=== PATIENT | female | born 1930 | race Caucasian/White ===

== ENCOUNTER 2018-01-27 16:47 | Inpatient (IN) | payer MEDICARE, MEDICAID ==
[2018-01-27 20:44] LABS: ABS Basophils 0 10^3/ul (0-0.2); ABS Eosinophils 0 10^3/ul (0-0.6); ABS Lymphocytes 0.6 10^3/ul (1.0-4.8); ABS Monocytes 0.9 10^3/ul (0-0.8); ABS Nucleated RBC 0 10^3/ul; Eosinophil % 0.4 % (0-6); Hematocrit 27 % (35-47); Hemoglobin 9.4 g/dl (12.0-16.0); Lymphocyte % 5.9 % (25-47); Mean Corpuscular HGB Conc 34 g/dl (31-36); Mean Corpuscular Hemoglobin 30 pg (27-31); Mean Corpuscular Volume 89 fL (80-97); Nucleated Red Blood Cells % 0; Platelet Count 159 10^3/ul (150-450); Red Cell Distribution Width 13 % (10.5-15); White Blood Count 10.6 10^3/ul (3.5-10.8)
[2018-01-27 21:02] LABS: EGFR Non-African American 35.4 (>60)
--- NOTE | 2018-01-27 22:19 | ED ---
Neurological HPI - HPI Summary HPI Summary: This patient is an 87 year old F presenting to [facility] accompanied by her son with a chief complaint of expressive aphasia since 01/23/18. Pt denies visual changes and SPENCE. She denies PMHx CVA, ID. PMHx polio; right leg smaller and weaker than the left. She also endorses lower abd pain, and was in the hospital for a liver I&D. She denies any urinary sx and N/V/D. - History of Current Complaint Chief Complaint: EDAbdPain Stated Complaint: GEN ILLNESS Hx Obtained From: Patient Onset/Duration: Sudden Onset, Started days ago, Still Present Timing: Constant Onset Severity: Mild Current Severity: Mild Neurological Deficit Location: Generalized Pain Intensity: 4 Pain Scale Used: 0-10 Numeric Character: Impaired Speech - expressive aphasia Aggravating: Nothing Alleviating: Nothing Associated Signs and Symptoms: Positive: Impaired Speech, Nothing. Negative: Visual Changes, Headache, Nausea/Vomiting TPA Considered: No Related Hx: Recent Illness - recent hospital visit, I&D for abscess on liver - Allergy/Home Medications Allergies/Adverse Reactions: Allergies Allergy/AdvReac Type Severity Reaction Status Date / Time MS Epinephrine [Epinephrine] AdvReac Severe Palpitation Verified 01/24/18 11:22 s MS Procaine [From Novocain] AdvReac Severe Palpitation Verified 01/24/18 11:22 s MS Phenytoin [From Dilantin] AdvReac Intermediate Shakes Verified 01/24/18 11:22 MS Simvastatin [Simvastatin] AdvReac Unknown See Comment Verified 01/24/18 11:22 PMH/Surg Hx/FS Hx/Imm Hx Endocrine/Hematology History: Denies: Hx Diabetes Cardiovascular History: Reports: Hx Angina, Hx Coronary Artery Disease, Hx Hypercholesterolemia, Hx Hypertension Denies: Hx Myocardial Infarction, Hx Valvular Heart Disease Respiratory History: Denies: Hx Asthma, Hx Chronic Obstructive Pulmonary Disease (COPD) Sensory History: Denies: Hx Legally Blind, Hx Deafness Opthamlomology History: Denies: Hx Legally Blind EENT History: Denies: Hx Deafness Psychiatric History: Denies: Hx Schizophrenia - Surgical History Surgery Procedure, Year, and Place: HYSTERECTOMY, APPENDECTOMY, OVARIAN CYST REMOVAL Infectious Disease History: No Infectious Disease History: Denies: Traveled Outside the [place] in Last 30 Days - Family History Known Family History: Positive: Cardiac Disease, Hypertension - BENIGN - Social History Occupation: Retired Lives: With Family Alcohol Use: None Substance Use Type: Reports: None Substance Use Comment - Amount & Last Used: PT ON TYLENOL #3 AND TRAMADOL Smoking Status (MU): Former Smoker Type: Cigarettes Review of Systems Negative: Fever Negative: Blurred Vision, Diplopia Negative: Sore Throat, Ear Ache Negative: Chest Pain Negative: Shortness Of Breath Positive: Abdominal Pain. Negative: Vomiting, Diarrhea, Nausea Positive: no symptoms reported. Negative: dysuria, hematuria Positive: Decreased ROM - right leg from polio when young. Negative: Arthralgia , Myalgia Negative: Rash Neurological: Other - expressive aphasia Negative: Headache Negative: Depressed All Other Systems Reviewed And Are Negative: No Physical Exam - Summary Physical Exam Summary: Appearance: Alert, conversive, nontoxic appearing Skin: Warm, dry, no mottling, no rashes, no contusions HEENT: EOMI, PERRL, moist mucous membranes, tongue midline Neck: No masses on the neck, supple Respiratory: Clear to auscultation, breath sounds present, no rales, no rhonchi , no wheezes Cardiovascular: RRR, pulses are symmetrical in both lower and upper extremities Abdomen: Soft, mild suprapubic TTP Bowel Sounds: Present Musculoskeletal: No CVA tenderness, no obvious deformity, moving all extremities in a grossly normal manner. 1+ bilateral pedal edema Neurological: A&Ox3, CN II-XII Intact, moving all extremities symmetrically. NIH = 0, GCS = 15 Psychiatric: Normal affect and mood Triage Information Reviewed: Yes Vital Signs On Initial Exam: Initial Vitals Temp Pulse Resp BP Pulse Ox 99 F 90 16 103/50 99 01/27/18 16:56 01/27/18 16:56 01/27/18 16:56 01/27/18 16:56 01/27/18 16:56 Vital Signs Reviewed: Yes - [place] Coma Scale Best Eye Response: 4 - Spontaneous Best Motor Response: 6 - Obeys Commands Best Verbal Response: 5 - Oriented Coma Scale Total: 15 Diagnostics - Vital Signs Vital Signs Temp Pulse Resp BP Pulse Ox 01/27/18 20:56 101.8 F 01/27/18 19:16 100.4 F 84 15 119/87 98 01/27/18 16:56 99 F 90 16 103/50 99 - Laboratory Lab Results: Lab Results 01/27/18 01/27/18 01/27/18 Range/Units 20:32 20:32 20:32 WBC 10.6 (3.5-10.8) 10^3/ul RBC 3.10 L (4.00-5.40) 10^6/ul Hgb 9.4 L (12.0-16.0) g/dl Hct 27 L (35-47) % MCV 89 (80-97) fL MCH 30 (27-31) pg MCHC 34 (31-36) g/dl RDW 13 (10.5-15) % Plt Count 159 (150-450) 10^3/ul MPV 8.0 (7.4-10.4) um3 Neut % (Auto) 85.3 H (38-83) % Lymph % (Auto) 5.9 L (25-47) % [place] % (Auto) 8.1 H (0-7) % Eos % (Auto) 0.4 (0-6) % Baso % (Auto) 0.3 (0-2) % Absolute Neuts (auto) 9.0 H (1.5-7.7) 10^3/ul Absolute Lymphs (auto) 0.6 L (1.0-4.8) 10^3/ul Absolute Monos (auto) 0.9 H (0-0.8) 10^3/ul Absolute Eos (auto) 0 (0-0.6) 10^3/ul Absolute Basos (auto) 0 (0-0.2) 10^3/ul Absolute Nucleated RBC 0 10^3/ul Nucleated RBC % 0 Sodium 136 (135-145) mmol/L Potassium 4.6 (3.5-5.0) mmol/L Chloride 104 (101-111) mmol/L Carbon Dioxide 24 (22-32) mmol/L Anion Gap 8 (2-11) mmol/L BUN 29 H (6-24) mg/dL Creatinine 1.41 H (0.51-0.95) mg/dL Est GFR ( Amer) 42.9 (>60) Est GFR (Non-Af Amer) 35.4 (>60) BUN/Creatinine Ratio 20.6 H (8-20) Glucose 122 H (70-100) mg/dL Lactic Acid 0.4 L (0.5-2.0) mmol/L Calcium 9.4 (8.6-10.3) mg/dL Total Bilirubin 1.00 (0.2-1.0) mg/dL AST 14 (13-39) U/L ALT 8 (7-52) U/L Alkaline Phosphatase 71 (34-104) U/L C-Reactive Protein 117.19 H (<8.01) mg/L Total Protein 6.6 (6.4-8.9) g/dL Albumin 4.1 (3.2-5.2) g/dL Globulin 2.5 (2-4) g/dL Albumin/Globulin Ratio 1.6 (1-3) Lipase 12 (11.0-82.0) U/L Result Diagrams: 01/27/18 20:32 01/27/18 20:32 Lab Statement: Any lab studies that have been ordered have been reviewed, and results considered in the medical decision making process. NIH Scale - NIH Scale Level of Consciousness: Alert/Keenly Responsive Ask Patient the Month and His/Her Age: Both Correct Ask Pt to Open/Close Eyes and Cda Teacher/Release Non-Paretic Hand: Both Correctly Best Gaze (Only Horizontal Eye Movement): Normal Visual Field Testing: No Visual Loss Facial Paresis-Pt to Smile & Close Eyes or Grimace Symmetry: Normal/Symmetrical Motor Function - Right Arm: No Drift-Holds 10 Seconds Motor Function - Left Arm: No Drift-Holds 10 Seconds Motor Function - Right Leg: No Drift-Holds 10 Seconds Motor Function - Left Leg: No Drift-Holds 10 Seconds Limb Ataxia-Must be out of Proportion to Weakness Present: Absent Sensory (Use Pinprick to Test Arms/Legs/Trunk/Face): Normal Best Language (Describe Picture, Name Items): No Aphasia Dysarthria (Read Several Words): Normal Extinction and Inattention: No Abnormality Total Score: 0 Course/Dx - Course Course Of Treatment: 87 y/o F c/o expressive aphasia for 4 days, and suprapubic abd pain. She denies SPENCE, visual changes, urinary sx, and N/V/D. Denies PMHx and FHx of CVA. Will sign-out to Dr. Renae. - Diagnoses Provider Diagnoses: Expressive aphasia, Suprapubic abdominal pain - Physician Notifications Discussed Care Of Patient With: Consuelo Duffy Time Discussed With Above Provider: 21:35 Instructed by Provider To: Other - Recommended sign out to Dr. Renae to close the loop with her regarding the CT brain. Discharge - Sign-Out/Discharge Documenting (check all that apply): Sign-Out Patient Signing out patient TO: Hany Renae - CT brain, admit - Discharge Plan Referrals: Tracie Malik MD [Primary Care Provider] - - Attestation Statements Document Initiated by Scribe: Yes Documenting Scribe: Hakan Salinas Provider For Whom Scribe is Documenting (Include Credential): Dr. Joyce Gomes MD Scribe Attestation: Hakan Ta, scribed for Dr. Joyce Gomes MD on 01/27/18 at 2223.
[2018-01-27 22:49] LABS: Urine Appearance Turbid; Urine Blood 1+ (Negative); Urine Color Amber; Urine Ketones Negative (Negative); Urine Protein 2+(100 mg/dL) (Negative); Urine Red Blood Cell 3+(>10/hpf) (Absent); Urine Specific Gravity 1.028 (1.010-1.030); Urine Urobilinogen Negative (Negative); Urine White Blood Cell 3+(>20/hpf) (Absent)
--- NOTE | 2018-01-27 23:25 | RAD ---
EXAM: CT Head Without Intravenous Contrast CLINICAL HISTORY: 87 years old, female; Signs and symptoms; Other: Expressive asphasia; Additional info: Expressive aphasia TECHNIQUE: Axial computed tomography images of the head/brain without intravenous contrast. All CT scans at this facility use at least one of these dose optimization techniques: automated exposure control; mA and/or kV adjustment per patient size (includes targeted exams where dose is matched to clinical indication); or iterative reconstruction. COMPARISON: BRAIN WO CT BRAIN WO 08/25/2016 11:08 AM FINDINGS: Brain: Mild periventricular and subcortical low attenuation without adjacent mass effect. No acute ischemic changes, extra axial fluid collections, intraparenchymal hemorrhage, or midline shift. Ventricles: The ventricles and extraventricular CSF spaces are widened although symmetrically positioned along the midline. Bones/joints: No acute fracture. No suspicious osseous lesions. Soft tissues: Normal. Vasculature: The vasculature demonstrates diffuse mild atherosclerotic calcification. Sinuses: Normal as visualized. Mastoid air cells: Normal as visualized. No mastoid effusion. IMPRESSION: 1. No acute intracranial abnormality. 2. Age-related atrophy and mild chronic small vessel ischemic disease.
[2018-01-27] MEDS ORDERED: Aspirin 81 mg CHEW TAB* 81 MG TAB.CHEW PO ONE (23:38)
[2018-01-27] MEDS ORDERED: NS 0.9% 1000 ML* 1,000 ML IV ONE (23:38)
[2018-01-27] MEDS ORDERED: Ondansetron INJ* 2 MG/ML VIAL IV PRN (23:38)
[2018-01-27] MEDS ORDERED: NS 0.9% 1000 ML* 1,000 ML IV SCH (23:45)
[2018-01-28] MEDS ORDERED: Iodixanol* (CONTRAST) 320 MG/ML 100 ML SDV IV ONE (00:10)
--- NOTE | 2018-01-28 01:07 | RAD ---
EXAM: CT Abdomen and Pelvis With Intravenous Contrast CLINICAL HISTORY: 87 years old, female; Pain; Abdominal pain; Flank; Right lower quadrant (rlq); Patient HX: Appy/note of recent liver cyst drained i. V contrast only/nephrostomy tube seen on CT; Additional info: Rlq pain, recent liver cyst drainaged, iv only TECHNIQUE: Axial computed tomography images of the abdomen and pelvis with intravenous contrast. All CT scans at this facility use at least one of these dose optimization techniques: automated exposure control; mA and/or kV adjustment per patient size (includes targeted exams where dose is matched to clinical indication); or iterative reconstruction. Coronal and sagittal reformatted images were created and reviewed. CONTRAST: 79 mL of VISIPAQUE 320 administered intravenously. COMPARISON: A/P WO CT ABD/PEL W/O 06/16/2017 10:52 AM FINDINGS: Lung bases: Minimal parenchymal scarring inferior lingula. ABDOMEN: Liver: Innumerable cysts are seen throughout the liver including the previously seen large cyst now containing a percutaneous drain which is now partially collapsed. Example cyst in segment II measures 5.3 cm unchanged from prior study. No enhancing liver lesions. Normal liver size. Gallbladder and bile ducts: Normal. No radiopaque calculi. No ductal dilation. Pancreas: Normal. No mass. No ductal dilation. Spleen: Normal. No splenomegaly. Adrenals: Normal. No mass. Kidneys and ureters: Proteinaceous/hemorrhagic renal cyst left superior pole measures 2.9 cm unchanged from prior study. Smaller proteinaceous/hemorrhagic cysts right superior pole largest measuring 1.5 cm unchanged from prior study. No calculi or pelvocaliectasis. Stomach and bowel: Incompletely distended grossly normal stomach. Normal caliber small bowel. No colonic masses or segmental wall thickening. PELVIS: Appendix: Nonvisualized appendix with no secondary findings to suggest appendicitis. Bladder: Thin-walled bladder with no focal nodularity, perivesicular stranding, or calcifications. Reproductive: Uterus and ovaries are surgically absent. ABDOMEN and PELVIS: Intraperitoneal space: Normal. No pneumoperitoneum. No ascities. Bones/joints: The spine demonstrates mild degenerative changes at multiple levels. No fractures. No suspicious bone lesions. Soft tissues: Normal. No hernias. Vasculature: The aorta demonstrates mild atherosclerotic calcification. Patent IVC. No abdominal aortic aneurysm. Lymph nodes: Normal. No enlarged lymph nodes. IMPRESSION: 1. No CT findings to correlate with patient's symptomatology. 2. Interval percutaneous drain placement in the large left hepatic lobe cyst which is partially collapsed. 3. Numerous simple hepatic and bilateral proteinaceous/hemorrhagic renal cysts.
[2018-01-28] MEDS: Cefepime 1 GM in Dextrose(*) 1 GM/50 ML BAG IV SCH (02:12)
[2018-01-28 02:24] LABS: INR 1.12 (0.77-1.02)
[2018-01-28 02:33] LABS: EGFR Non-African American 39.3 (>60)
[2018-01-28] MEDS: metroNIDAZOLE IV 500 MG/100ML* 500 MG/100 ML BAG IVPB SCH ×3 (03:25→17:39)
--- NOTE | 2018-01-28 03:38 | HP ---
CC: Dr. Tracie Malik * HISTORY AND PHYSICAL: DATE OF ADMISSION: 01/27/18 PRIMARY CARE PROVIDER: Dr. Tracie Malik. ATTENDING PHYSICIAN WHILE IN THE HOSPITAL: Dr. Consuelo Duffy * (report dictated by Blade Esposito NP). CHIEF COMPLAINT: 1. Difficulty with speech. 2. Abdominal pain. 3. Fever. HISTORY OF PRESENTING ILLNESS: Ms. Mckee is an 87-year-old female patient who has a history of polycystic liver disease, who follows with Dr. Castañeda's office. She has been having significant right upper quadrant pain 3 days ago. She was referred to IR for a drain of one of her large hepatic cyst. A drain was placed and has been draining a cystic type fluid according to pathology reports. The patient is presenting today because she has been having difficulties with fever at home. Apparently she had a fever today of 104 according to the patient. There was one report here of 102. She has been feeling chilled. In addition to this, the family also states that the last 3 days she has been having difficulty with speech. She has been having a harder time getting her words out. There has been no reports of weakness to 1 side. She does have right lower extremity weakness from polio, she says. She also carries a history of hypertension, depression, GERD, osteoporosis, history of headaches, anemia, and a history of arthritis. She denied having any chest pain or shortness of breath, but she did admit to having abdominal discomfort in the right lower quadrant, but again most of her chronic abdominal pain has been in the right upper quadrant. She denied any nausea, vomiting, or diarrhea. She did admit to having that fever and there has been no reports of facial drooping or weakness to the upper or lower extremities with the exception of that right extremity, which has been chronic in nature. There was concern because of the pain, the fever and she came into the hospital today, was evaluated and we were asked to evaluate for admission. 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 2. Stress incontinence. 3. Osteoporosis. 4. Hypertension. 5. Headaches. 6. Depression. 7. GERD. 8. Anemia. 9. Atherosclerotic heart disease. 10. Arthritis. PAST SURGICAL HISTORY: According to old records, she was unable to give this to me due to the trouble with her speech she has been having, but she has had a colonoscopy. No other surgical records are reported and she has had a drain placed 3 days ago. HOME MEDICATIONS: Include, 1. Vitamin B12 1000 mcg daily. 2. Tylenol with Codeine 1 tablet daily as needed. 3. Vitamin D 50,000 units monthly. 4. Amlodipine 1 tablet daily. 5. Lisinopril 10 mg daily. 6. Omeprazole 20 mg daily. This is according to an old list. Please we will need to clarify this medications when able. She is unable to do that now. ALLERGIES TO MEDICATIONS: Include SIMVASTATIN, NOVOCAINE, SULFA, and EPINEPHRINE. FAMILY HISTORY: She said her father had a heart attack. She said her mother of old age. SOCIAL HISTORY: She is a former smoker, she says she quit several years ago. She does not drink alcohol. Surrogate decision maker is her son. REVIEW OF SYSTEMS: There is documented fever here. She denied any significant weight change. There was no double vision. She denies having any ear discharge. There is no rhinorrhea. There was no sore throat. There is no thyroid enlargement. She denied having any chest pain. There is no orthopnea. No nocturnal dyspnea. There is abdominal pain per my HPI in the right lower quadrant. She denied any nausea or vomiting. No dysuria, no frequency. There was no seizure. No loss of consciousness. No pruritus and no skin ulcerations. Review of 14 systems completed, all others were negative. PHYSICAL EXAMINATION GENERAL: At this time, Ms. Mckee is an 87-year-old female patient; she is chronically ill appearing. She is sitting in the ED stretcher. She does not appear to be in any acute distress. HEENT: Head: Atraumatic and normocephalic. Eyes: EOMs are intact. Sclerae: Anicteric, not pale. Throat: Oral mucosa appears to be dry. No oropharyngeal erythema. NECK: Supple. LUNGS: Clear to auscultation bilaterally. No wheezes, rales, or rhonchi. HEART: Sounds S1, S2. She had a regular rate and rhythm. No murmurs, rubs, or gallops. ABDOMEN: Soft, it was flat. There was a drain to the epigastric area, which again the site was assessed. It appeared to be well approximated the drain site. There was no erythema or discharge. The drain was draining a brownish type fluid. There was tenderness in the right lower quadrant. No rebound tenderness or guarding. Bowel sounds present. EXTREMITIES: Pulses were 2+ throughout. The right lower extremity has atrophy compared to the left lower extremity, but again she did have polio, she said it has been chronic. She had no peripheral edema. Pulses were 2+ throughout. She had 5/5 strength in upper extremities, 4/5 strength in the right lower extremity, 5/5 strength in the left lower extremity. NEUROLOGICAL: She is awake, she is alert. Her speech is not slurred but during times of getting my history she was having difficulty coming up of words and then at times when asking her her name, the month, and where she was, she was very fluent with that. She was intermittent and sporadic during my exam. The son does state that according to him the speech does appear to be off. Tongue was midline. Her dock superintendent were equal. [id number] and [id number] were intact bilaterally. She had no other gross focal deficits. SKIN: Intact. LABORATORY DATA/DIAGNOSTIC STUDIES: WBC of 10.6, RBC of 3.10, hemoglobin of 9.4, hematocrit of 27, and a platelet count of 157. The sodium was 136, potassium was 4.6, chloride of 104, bicarb 24, BUN 29, creatinine 1.41, glucose of 122, lactate 0.4, calcium 9.4. Total bili 1, AST 14, ALT 8, alk phos 71. CRP 117, albumin of 4.1, lipase normal. Urine showed 1+ blood, trace leukocyte esterase, 3+ wbc, absent bacteria. She had a brain CT obtained today, which revealed no acute intracranial abnormality; age-related atrophy and mild chronic small vessel ischemic changes. Old medical records were reviewed. ASSESSMENT AND PLAN: Ms. Mckee is an 87-year-old female patient coming into the ER today with complaints of abdominal pain, fever and in addition to this altered mental status, difficulty with speech. We were asked to evaluate for admission. She will be admitted under inpatient status for: 1. Abdominal discomfort. I am concerned with the setting of the recent drain placement and the fact that she has a fever now and a left shift on her differential for her CBC that she could have an active infection somewhere. I think she deserves a CT of the abdomen and pelvis. Getting on these findings, we may need to consider getting in touch with Surgery and IR possibly to reevaluate this drain, but I would like to get the CT. In addition to this, I will place her empirically on antibiotics. I will panculture her due to the fever. I will check a chest x-ray. Her lactic was stable. She does not need fluid bolus. She does not appear to be in septic shock or severe sepsis. She actually does not appear to be septic currently, but we will continue to monitor her for this and we will get imaging and possible surgical evaluation. 2. Altered mental status and expressive aphasia. Etiology of this is unclear. CT brain was negative. This has been going on for 3 days. She is outside the window for any intervention. My concern is that she has an active infection , this could be certainly causing a toxic encephalopathy. I would like to place her on telemetry. I will give her an aspirin empirically. I will check lipid panel A1c. In addition to this, place her on telemetry. Low threshold if this does not improve, to get in touch with Neurology. We may consider touching base with them tomorrow, but at this point, we will treat underlying infection and consider further workup for possible MRI, echo, and CTA head and neck, but I would like to get the CT abdomen and pelvis first given her fever and recent instrumentation. 3. Hypertension. In the setting of her acute illness, I am going to hold her blood pressure medications. 4. Depression. Continue supportive care. 5. Gastroesophageal reflux disease. I will continue her PPI therapy. 6. Anemia. H and H is stable. 7. Acute on chronic kidney disease. Her baseline creatinine is about 1.2, which is 1.4 today. We will hydrate her and follow. 8. Deep vein thrombosis prophylaxis. She is high risk. I will place her on heparin subcutaneous. 9. Code status. Full code. 10. Fluids, electrolytes, and nutrition. She is n.p.o. Pending the CT abdomen and pelvis. TIME SPENT: On the admission was 60 minutes, greater than half time was spent face- to-face with the patient obtaining my history and physical, other half time was spent going over the plan of care with the patient and implementing the plan of care. I did discuss the plan of care with my attending, Dr. Duffy, she is in agreement. BLADE ESPOSITO NP [id number]/[facility] #: [id number] IKE
[2018-01-28] MEDS: Omeprazole CAP* 20 MG PO SCH (05:43)
[2018-01-28] MEDS: Heparin VIAL(*) 5000 UNITS/ML VIAL (FIVE THOUSAND) SUBCUT SCH ×3 (05:43→21:52)
[2018-01-28] MEDS: Aspirin 81 mg CHEW TAB* 81 MG TAB.CHEW PO SCH ×2 (09:43→11:24)
[2018-01-28 10:10] LABS: ABS Basophils 0.1 10^3/ul (0-0.2); ABS Eosinophils 0 10^3/ul (0-0.6); ABS Lymphocytes 0.5 10^3/ul (1.0-4.8); ABS Monocytes 0.6 10^3/ul (0-0.8); ABS Neutrophils 6.2 10^3/ul (1.5-7.7); ABS Nucleated RBC 0 10^3/ul; Eosinophil % 0.1 % (0-6); Hematocrit 25 % (35-47); Hemoglobin 8.7 g/dl (12.0-16.0); Lymphocyte % 7.4 % (25-47); Mean Corpuscular HGB Conc 34 g/dl (31-36); Mean Corpuscular Hemoglobin 30 pg (27-31); Mean Corpuscular Volume 88 fL (80-97); Mean Platelet Volume 7.6 um3 (7.4-10.4); Nucleated Red Blood Cells % 0; Platelet Count 123 10^3/ul (150-450); Red Blood Count 2.86 10^6/ul (4.00-5.40); Red Cell Distribution Width 13 % (10.5-15); White Blood Count 7.4 10^3/ul (3.5-10.8)
--- NOTE | 2018-01-28 10:44 | RAD ---
INDICATION: Fever COMPARISON: Most recent comparison chest x-ray is dated December 28, 2014 TECHNIQUE: Single AP portable view of the chest was obtained. FINDINGS: Image quality is compromised due to the relative inferiority of a portable chest x-ray. The heart and mediastinum exhibit normal size and contour. There is faint calcification overlying the arch of the aorta. Similar to the prior chest x-ray there is increased density of the interstitial markings. The diaphragm and costophrenic angles are well-defined. There is no focal or lobar consolidation. Visualized bones are normal for the patient's age. IMPRESSION: Increased density of interstitial markings similar to the previous chest x-ray could be seen in the setting of early, mild interstitial lung disease versus mild vascular congestion.
--- NOTE | 2018-01-28 11:21 | PN ---
Subjective Date of Service: 01/28/18 Interval History: Pt feels much better, no longer has difficulty with word finding. [place] had been WNL since admission. C/o LUQ abd pain better then before. eating with no problems. denies SOB/CP Lives at home alone. Has VNS coming to the house 3x/week Objective Active Medications: Acetaminophen (Tylenol Tab*) 650 mg PO Q4H PRN PRN Reason: FEVER/PAIN Aspirin (Aspirin 81 Mg Chew Tab*) 81 mg PO DAILY [facility] Heparin Sodium (Porcine) (Heparin Vial(*)) 5,000 units SUBCUT Q8HR [facility] Last Admin: 01/28/18 05:43 Dose: 5,000 units Cefepime HCl (Maxipime 1 Gm In Dextrose Duplex (*)) 1 gm in 50 mls @ 100 mls/ hr IV Q24H [facility] Last Admin: 01/28/18 02:12 Dose: 100 mls/hr Metronidazole/Sodium Chloride (Flagyl 500 Mg Ivpb*) 500 mg in 100 mls @ 100 mls /hr IVPB Q8H [facility] Last Admin: 01/28/18 09:41 Dose: 100 mls/hr Sodium Chloride (Ns 0.9% 1000 Ml*) 1,000 mls @ 100 mls/hr IV PER RATE [facility] Omeprazole (Prilosec Cap*) 20 mg PO DAILY@0600 [facility] Last Admin: 01/28/18 05:43 Dose: 20 mg Ondansetron HCl (Zofran Inj*) 4 mg IV Q6H PRN PRN Reason: NAUSEA Vital Signs - 8 hr 01/28/18 04:18 Temperature 98.4 F Pulse Rate 71 Respiratory 20 Rate Blood Pressure 106/31 (mmHg) O2 Sat by Pulse 97 Oximetry Oxygen Devices in Use Now: None Appearance: 87 yo F in nAD, aAOx2, remembers her , but not age, then was able to recall current year Eyes: No Scleral Icterus, PERRLA Ears/Nose/Mouth/Throat: NL Teeth, Lips, Gums, Mucous Membranes Moist Neck: NL Appearance and Movements; NL JVP, Trachea Midline Respiratory: Symmetrical Chest Expansion and Respiratory Effort, - - faint bibasiliar crackles Cardiovascular: NL Sounds; No Murmurs; No JVD, RRR Abdominal: - - soft, mild tenderness in RUQ noted, no rebound, no guarding. IR drain in place in RUQ draining fair amount of cloudy brown fluid Lymphatic: No Cervical Adenopathy Extremities: No Clubbing, Cyanosis, - - trace pedal edema b/l Skin: No Rash or Ulcers, No Nodules or Sclerosis Neurological: Alert and Oriented x 3, NL Muscle Strength and Tone Result Diagrams: 01/28/18 10:05 01/28/18 10:05 Additional Lab and Data: Lab Results 01/27/18 01/27/18 01/27/18 Range/Units 20:32 20:32 20:32 WBC 10.6 (3.5-10.8) 10^3/ul RBC 3.10 L (4.00-5.40) 10^6/ul Hgb 9.4 L (12.0-16.0) g/dl Hct 27 L (35-47) % MCV 89 (80-97) fL MCH 30 (27-31) pg MCHC 34 (31-36) g/dl RDW 13 (10.5-15) % Plt Count 159 (150-450) 10^3/ul MPV 8.0 (7.4-10.4) um3 Neut % (Auto) 85.3 H (38-83) % Lymph % (Auto) 5.9 L (25-47) % [place] % (Auto) 8.1 H (0-7) % Eos % (Auto) 0.4 (0-6) % Baso % (Auto) 0.3 (0-2) % Absolute Neuts (auto) 9.0 H (1.5-7.7) 10^3/ul Absolute Lymphs (auto) 0.6 L (1.0-4.8) 10^3/ul Absolute Monos (auto) 0.9 H (0-0.8) 10^3/ul Absolute Eos (auto) 0 (0-0.6) 10^3/ul Absolute Basos (auto) 0 (0-0.2) 10^3/ul Absolute Nucleated RBC 0 10^3/ul Nucleated RBC % 0 Sodium 136 (135-145) mmol/L Potassium 4.6 (3.5-5.0) mmol/L Chloride 104 (101-111) mmol/L Carbon Dioxide 24 (22-32) mmol/L Anion Gap 8 (2-11) mmol/L BUN 29 H (6-24) mg/dL Creatinine 1.41 H (0.51-0.95) mg/dL Est GFR ( Amer) 42.9 (>60) Est GFR (Non-Af Amer) 35.4 (>60) BUN/Creatinine Ratio 20.6 H (8-20) Glucose 122 H (70-100) mg/dL Lactic Acid 0.4 L (0.5-2.0) mmol/L Calcium 9.4 (8.6-10.3) mg/dL Total Bilirubin 1.00 (0.2-1.0) mg/dL AST 14 (13-39) U/L ALT 8 (7-52) U/L Alkaline Phosphatase 71 (34-104) U/L C-Reactive Protein 117.19 H (<8.01) mg/L Total Protein 6.6 (6.4-8.9) g/dL Albumin 4.1 (3.2-5.2) g/dL Globulin 2.5 (2-4) g/dL Albumin/Globulin Ratio 1.6 (1-3) Lipase 12 (11.0-82.0) U/L Microbiology and Other Data: Microbiology 01/28/18 08:45 Gram Stain - Final Body Fluid - Abdominal Assess/Plan/Problems-Billing Assessment: 87 yo F with h/o HTN and cystic liver had IR drain placed in 12 cm liver cyst on 01/24/18. Developed fever and confusion at home. - Patient Problems (1) Liver disease, cystic, congenital Comment: pt's fever is likely due to infected liver cyst. cont IR drain. Spoke with Dr. Peck who will eval pt for possible drain exchange. Fluid +4 WBC, no organisms seen cont Cefepime/Flagyl, cx pending (2) GERD (gastroesophageal reflux disease) Comment: cont PPI (3) Encephalopathy Comment: transient, resolved, likley due to ongoing infection, doubt CVA. will d /c neurochecks (4) Anemia Comment: mild worsening of chronic (Hb at 10 at baseline) No signs or symptoms of bleeding cont to monitor (5) DVT prophylaxis Comment: HSQ Status and Disposition: inpatient
[2018-01-28] MEDS: Acetaminophen TAB* 325 MG PO PRN (20:03)
[2018-01-29] MEDS: Cefepime 1 GM in Dextrose(*) 1 GM/50 ML BAG IV SCH (00:47)
[2018-01-29] MEDS: metroNIDAZOLE IV 500 MG/100ML* 500 MG/100 ML BAG IVPB SCH ×3 (01:32→17:05)
[2018-01-29] MEDS: Heparin VIAL(*) 5000 UNITS/ML VIAL (FIVE THOUSAND) SUBCUT SCH ×3 (05:17→22:20)
[2018-01-29] MEDS: Omeprazole CAP* 20 MG PO SCH (05:17)
[2018-01-29 06:15] LABS: ABS Basophils 0.1 10^3/ul (0-0.2); ABS Eosinophils 0 10^3/ul (0-0.6); ABS Lymphocytes 0.6 10^3/ul (1.0-4.8); ABS Monocytes 0.5 10^3/ul (0-0.8); ABS Neutrophils 5.1 10^3/ul (1.5-7.7); ABS Nucleated RBC 0 10^3/ul; Eosinophil % 0.1 % (0-6); Hematocrit 24 % (35-47); Hemoglobin 8.6 g/dl (12.0-16.0); Lymphocyte % 9.9 % (25-47); Mean Corpuscular HGB Conc 35 g/dl (31-36); Mean Corpuscular Hemoglobin 31 pg (27-31); Mean Corpuscular Volume 87 fL (80-97); Mean Platelet Volume 8.2 um3 (7.4-10.4); Nucleated Red Blood Cells % 0; Platelet Count 125 10^3/ul (150-450); Red Cell Distribution Width 13 % (10.5-15); White Blood Count 6.4 10^3/ul (3.5-10.8)
[2018-01-29 06:36] LABS: EGFR Non-African American 45.8 (>60)
[2018-01-29] MEDS: Aspirin 81 mg CHEW TAB* 81 MG TAB.CHEW PO SCH (08:32)
[2018-01-29] MEDS: Acetaminophen TAB* 325 MG PO PRN (08:32)
--- NOTE | 2018-01-29 12:01 | PN ---
Subjective Date of Service: 01/29/18 Interval History: Pt feels well. RUQ discomfort /pain is gone. No other complaints Objective Active Medications: Acetaminophen (Tylenol Tab*) 650 mg PO Q4H PRN PRN Reason: FEVER/PAIN Last Admin: 01/29/18 08:32 Dose: 650 mg Aspirin (Aspirin 81 Mg Chew Tab*) 81 mg PO DAILY [facility] Last Admin: 01/29/18 08:32 Dose: 81 mg Heparin Sodium (Porcine) (Heparin Vial(*)) 5,000 units SUBCUT Q8HR [facility] Last Admin: 01/29/18 05:17 Dose: 5,000 units Cefepime HCl (Maxipime 1 Gm In Dextrose Duplex (*)) 1 gm in 50 mls @ 100 mls/ hr IV Q24H [facility] Last Admin: 01/29/18 00:47 Dose: 100 mls/hr Metronidazole/Sodium Chloride (Flagyl 500 Mg Ivpb*) 500 mg in 100 mls @ 100 mls /hr IVPB Q8H [facility] Last Admin: 01/29/18 09:48 Dose: 100 mls/hr Omeprazole (Prilosec Cap*) 20 mg PO DAILY@0600 [facility] Last Admin: 01/29/18 05:17 Dose: 20 mg Ondansetron HCl (Zofran Inj*) 4 mg IV Q6H PRN PRN Reason: NAUSEA Vital Signs - 8 hr 01/29/18 01/29/18 01/29/18 07:31 08:00 11:29 Temperature 99.5 F 99.1 F Pulse Rate 86 84 Respiratory 18 20 18 Rate Blood Pressure 129/45 131/52 (mmHg) O2 Sat by Pulse 100 100 Oximetry Oxygen Devices in Use Now: None Appearance: 87 yo F in nAD, aAOx3 Eyes: No Scleral Icterus, PERRLA Ears/Nose/Mouth/Throat: NL Teeth, Lips, Gums, Mucous Membranes Moist Neck: NL Appearance and Movements; NL JVP, Trachea Midline Respiratory: Symmetrical Chest Expansion and Respiratory Effort, Clear to Auscultation Cardiovascular: NL Sounds; No Murmurs; No JVD, RRR Abdominal: NL Sounds; No Tenderness; No Distention, - - drain present in RUQ with fluid that appears less purulent, but tinged with blood, minmal tenderness in RUQ, BS+ Lymphatic: No Cervical Adenopathy Extremities: No Edema, No Clubbing, Cyanosis Skin: No Rash or Ulcers, No Nodules or Sclerosis Neurological: Alert and Oriented x 3, NL Muscle Strength and Tone Result Diagrams: 01/29/18 06:03 01/29/18 06:03 Additional Lab and Data: Lab Results 01/27/18 01/27/18 01/27/18 Range/Units 20:32 20:32 20:32 WBC 10.6 (3.5-10.8) 10^3/ul RBC 3.10 L (4.00-5.40) 10^6/ul Hgb 9.4 L (12.0-16.0) g/dl Hct 27 L (35-47) % MCV 89 (80-97) fL MCH 30 (27-31) pg MCHC 34 (31-36) g/dl RDW 13 (10.5-15) % Plt Count 159 (150-450) 10^3/ul MPV 8.0 (7.4-10.4) um3 Neut % (Auto) 85.3 H (38-83) % Lymph % (Auto) 5.9 L (25-47) % [place] % (Auto) 8.1 H (0-7) % Eos % (Auto) 0.4 (0-6) % Baso % (Auto) 0.3 (0-2) % Absolute Neuts (auto) 9.0 H (1.5-7.7) 10^3/ul Absolute Lymphs (auto) 0.6 L (1.0-4.8) 10^3/ul Absolute Monos (auto) 0.9 H (0-0.8) 10^3/ul Absolute Eos (auto) 0 (0-0.6) 10^3/ul Absolute Basos (auto) 0 (0-0.2) 10^3/ul Absolute Nucleated RBC 0 10^3/ul Nucleated RBC % 0 Sodium 136 (135-145) mmol/L Potassium 4.6 (3.5-5.0) mmol/L Chloride 104 (101-111) mmol/L Carbon Dioxide 24 (22-32) mmol/L Anion Gap 8 (2-11) mmol/L BUN 29 H (6-24) mg/dL Creatinine 1.41 H (0.51-0.95) mg/dL Est GFR ( Amer) 42.9 (>60) Est GFR (Non-Af Amer) 35.4 (>60) BUN/Creatinine Ratio 20.6 H (8-20) Glucose 122 H (70-100) mg/dL Lactic Acid 0.4 L (0.5-2.0) mmol/L Calcium 9.4 (8.6-10.3) mg/dL Total Bilirubin 1.00 (0.2-1.0) mg/dL AST 14 (13-39) U/L ALT 8 (7-52) U/L Alkaline Phosphatase 71 (34-104) U/L C-Reactive Protein 117.19 H (<8.01) mg/L Total Protein 6.6 (6.4-8.9) g/dL Albumin 4.1 (3.2-5.2) g/dL Globulin 2.5 (2-4) g/dL Albumin/Globulin Ratio 1.6 (1-3) Lipase 12 (11.0-82.0) U/L Microbiology and Other Data: Microbiology 01/28/18 08:45 Gram Stain - Final Body Fluid - Abdominal Assess/Plan/Problems-Billing Assessment: 87 yo F with h/o HTN and cystic liver had IR drain placed in 12 cm liver cyst on 01/24/18. Developed fever and confusion at home. - Patient Problems (1) Liver disease, cystic, congenital Comment: pt's fever is likely due to infected liver cyst. cont IR drain. Spoke with Dr. Peck who will eval pt for possible drain exchange on Tuesday. Fluid +4 WBC, no organisms seen cont Cefepime/Flagyl, cx pending (2) GERD (gastroesophageal reflux disease) Comment: cont PPI (3) Encephalopathy Comment: transient, resolved, likley due to ongoing infection, doubt CVA. will d /c neurochecks (4) Anemia Comment: mild worsening of chronic (Hb at 10 at baseline) No signs or symptoms of bleeding cont to monitor (5) CKD (chronic kidney disease) stage 3, GFR 30-59 ml/min Comment: creat at baseline (6) UTI (urinary tract infection) Comment: cx growing Acinetobacter and Enterobacter. cont current antibiotics. Sensitivites pending (7) DVT prophylaxis Comment: HSQ Status and Disposition: inpatient
[2018-01-29] MEDS ORDERED: Ibuprofen TAB* 800 MG PO ONE (16:07)
[2018-01-30] MEDS: Acetaminophen TAB* 325 MG PO PRN ×2 (00:04→08:04)
[2018-01-30] MEDS: Cefepime 1 GM in Dextrose(*) 1 GM/50 ML BAG IV SCH (01:16)
[2018-01-30] MEDS: metroNIDAZOLE IV 500 MG/100ML* 500 MG/100 ML BAG IVPB SCH ×3 (02:04→17:56)
[2018-01-30] MEDS: Omeprazole CAP* 20 MG PO SCH (05:33)
[2018-01-30] MEDS: Heparin VIAL(*) 5000 UNITS/ML VIAL (FIVE THOUSAND) SUBCUT SCH ×3 (05:33→21:35)
[2018-01-30 06:48] LABS: ABS Basophils 0.1 10^3/ul (0-0.2); ABS Eosinophils 0 10^3/ul (0-0.6); ABS Lymphocytes 0.8 10^3/ul (1.0-4.8); ABS Monocytes 0.5 10^3/ul (0-0.8); ABS Neutrophils 6.2 10^3/ul (1.5-7.7); ABS Nucleated RBC 0 10^3/ul; Eosinophil % 0.1 % (0-6); Hematocrit 26 % (35-47); Hemoglobin 9.1 g/dl (12.0-16.0); Lymphocyte % 10.1 % (25-47); Mean Corpuscular HGB Conc 35 g/dl (31-36); Mean Corpuscular Hemoglobin 30 pg (27-31); Mean Corpuscular Volume 87 fL (80-97); Nucleated Red Blood Cells % 0; Platelet Count 161 10^3/ul (150-450); Red Blood Count 3.02 10^6/ul (4.00-5.40); Red Cell Distribution Width 13 % (10.5-15); White Blood Count 7.6 10^3/ul (3.5-10.8)
[2018-01-30 07:10] LABS: EGFR Non-African American 47.7 (>60)
[2018-01-30] MEDS: Aspirin 81 mg CHEW TAB* 81 MG TAB.CHEW PO SCH (08:04)
--- NOTE | 2018-01-30 10:23 | PN ---
Subjective Date of Service: 01/30/18 Interval History: pt c/o lower back pain "from lying in bed too much yesterday" that resolved.Abd pain resolved. Upset about staying in hospital Objective Active Medications: Acetaminophen (Tylenol Tab*) 650 mg PO Q4H PRN PRN Reason: FEVER/PAIN Last Admin: 01/30/18 08:04 Dose: 650 mg Aspirin (Aspirin 81 Mg Chew Tab*) 81 mg PO DAILY [facility] Last Admin: 01/30/18 08:04 Dose: Not Given Heparin Sodium (Porcine) (Heparin Vial(*)) 5,000 units SUBCUT Q8HR [facility] Last Admin: 01/30/18 05:33 Dose: 5,000 units Cefepime HCl (Maxipime 1 Gm In Dextrose Duplex (*)) 1 gm in 50 mls @ 100 mls/ hr IV Q24H [facility] Last Admin: 01/30/18 01:16 Dose: 100 mls/hr Metronidazole/Sodium Chloride (Flagyl 500 Mg Ivpb*) 500 mg in 100 mls @ 100 mls /hr IVPB Q8H [facility] Last Admin: 01/30/18 09:33 Dose: 100 mls/hr Omeprazole (Prilosec Cap*) 20 mg PO DAILY@0600 [facility] Last Admin: 01/30/18 05:33 Dose: 20 mg Ondansetron HCl (Zofran Inj*) 4 mg IV Q6H PRN PRN Reason: NAUSEA Vital Signs - 8 hr 01/30/18 04:15 Temperature 98.7 F Pulse Rate 92 Respiratory 20 Rate Blood Pressure 143/66 (mmHg) O2 Sat by Pulse 99 Oximetry Oxygen Devices in Use Now: None Appearance: 87 yo F in nAD, aAOx3 Eyes: No Scleral Icterus, PERRLA Ears/Nose/Mouth/Throat: NL Teeth, Lips, Gums, Mucous Membranes Moist Neck: NL Appearance and Movements; NL JVP, Trachea Midline Respiratory: Symmetrical Chest Expansion and Respiratory Effort, Clear to Auscultation Cardiovascular: NL Sounds; No Murmurs; No JVD, RRR Abdominal: NL Sounds; No Tenderness; No Distention, - - mid abdomen drian in place draining slightly cloudy blood tinged fluid, abd otherwise soft, NT Lymphatic: No Cervical Adenopathy Extremities: No Clubbing, Cyanosis, - - trace pedal edema b/l Skin: No Rash or Ulcers, No Nodules or Sclerosis Neurological: Alert and Oriented x 3, NL Muscle Strength and Tone Result Diagrams: 01/30/18 06:37 01/30/18 06:37 Additional Lab and Data: Lab Results 01/27/18 01/27/18 01/27/18 Range/Units 20:32 20:32 20:32 WBC 10.6 (3.5-10.8) 10^3/ul RBC 3.10 L (4.00-5.40) 10^6/ul Hgb 9.4 L (12.0-16.0) g/dl Hct 27 L (35-47) % MCV 89 (80-97) fL MCH 30 (27-31) pg MCHC 34 (31-36) g/dl RDW 13 (10.5-15) % Plt Count 159 (150-450) 10^3/ul MPV 8.0 (7.4-10.4) um3 Neut % (Auto) 85.3 H (38-83) % Lymph % (Auto) 5.9 L (25-47) % [place] % (Auto) 8.1 H (0-7) % Eos % (Auto) 0.4 (0-6) % Baso % (Auto) 0.3 (0-2) % Absolute Neuts (auto) 9.0 H (1.5-7.7) 10^3/ul Absolute Lymphs (auto) 0.6 L (1.0-4.8) 10^3/ul Absolute Monos (auto) 0.9 H (0-0.8) 10^3/ul Absolute Eos (auto) 0 (0-0.6) 10^3/ul Absolute Basos (auto) 0 (0-0.2) 10^3/ul Absolute Nucleated RBC 0 10^3/ul Nucleated RBC % 0 Sodium 136 (135-145) mmol/L Potassium 4.6 (3.5-5.0) mmol/L Chloride 104 (101-111) mmol/L Carbon Dioxide 24 (22-32) mmol/L Anion Gap 8 (2-11) mmol/L BUN 29 H (6-24) mg/dL Creatinine 1.41 H (0.51-0.95) mg/dL Est GFR ( Amer) 42.9 (>60) Est GFR (Non-Af Amer) 35.4 (>60) BUN/Creatinine Ratio 20.6 H (8-20) Glucose 122 H (70-100) mg/dL Lactic Acid 0.4 L (0.5-2.0) mmol/L Calcium 9.4 (8.6-10.3) mg/dL Total Bilirubin 1.00 (0.2-1.0) mg/dL AST 14 (13-39) U/L ALT 8 (7-52) U/L Alkaline Phosphatase 71 (34-104) U/L C-Reactive Protein 117.19 H (<8.01) mg/L Total Protein 6.6 (6.4-8.9) g/dL Albumin 4.1 (3.2-5.2) g/dL Globulin 2.5 (2-4) g/dL Albumin/Globulin Ratio 1.6 (1-3) Lipase 12 (11.0-82.0) U/L Microbiology and Other Data: Microbiology 01/28/18 08:45 Gram Stain - Final Body Fluid - Abdominal Assess/Plan/Problems-Billing Assessment: 87 yo F with h/o HTN and cystic liver had IR drain placed in 12 cm liver cyst on 01/24/18. Developed fever and confusion at home. - Patient Problems (1) Liver disease, cystic, congenital Comment: pt's fever is likely due to infected liver cyst. cont IR drain. Spoke with Dr. Peck who will eval pt for possible drain exchange today Fluid +4 WBC. Cx positive for Enterobacter cont Cefepime/Flagyl. ID consulted (2) GERD (gastroesophageal reflux disease) Comment: cont PPI (3) Encephalopathy Comment: transient, resolved, likley due to ongoing infection, doubt CVA. will d /c neurochecks (4) Anemia Comment: mild worsening of chronic (Hb at 10 at baseline) No signs or symptoms of bleeding cont to monitor (5) CKD (chronic kidney disease) stage 3, GFR 30-59 ml/min Comment: creat at baseline (6) UTI (urinary tract infection) Comment: cx growing Acinetobacter and Enterobacter. cont current antibiotics. Sensitivites pending (7) DVT prophylaxis Comment: HSQ (8) Muscular deconditioning Comment: PT/OT ordered Status and Disposition: inpatient
[2018-01-30] MEDS: Lisinopril TAB* 5 MG PO SCH (10:56)
--- NOTE | 2018-01-30 12:53 | CONS ---
CONSULTATION REPORT: DATE OF CONSULT: 01/30/18 REQUESTING PHYSICIAN: Dr. Murray. CONSULTING SERVICE: Infectious Disease. REASON FOR CONSULT: Infected liver. IMPRESSION: 1. Polycystic liver disease, recent epigastric pain, enlarging cyst, status post IR drain, 2 to 3 days later developed fever and malaise, the culture of the body fluid growing Enterobacter. Blood cultures are negative for fevers, improved on antibiotics. She either had secondary infection of a cyst, which may have been enlarging and subsequently more significantly painful versus infection after the procedure; either way, she has an infected liver cyst. 2. Anemia. 3. Depression. RECOMMENDATIONS: Continue cefepime while she is here, then Levaquin 500 mg by mouth daily for the next 25 days and repeat the CT imaging towards the end to ensure this is significantly improved, recheck the CRP tomorrow to be sure that is resolving as well. HISTORY OF PRESENT ILLNESS: This is an 87-year-old woman with polycystic liver disease, who over the last year has had increasing abdominal pain and then last week had rapidly increased epigastric pain and found to have increase in size of a liver cyst, had placement of a drain by Interventional Radiology. The fluid that was removed showed 18,000 white cells, 87% neutrophils, the culture was negative at that time. A couple of days later, she had fevers, chills, sweats. No rigors because of worsening fever, she came to the hospital on . She had a white blood cell count of 10,000. She was febrile at 38.5. She was started on cefepime and Flagyl. Urinalysis shows blood and leukocyte esterase. The urine culture grew Enterobacter and Acinetobacter, the abdominal fluid grew Enterobacter. She was having what looked like purulent drainage from the epigastric drain. Today, she has no fever, chills, or sweats. She has minimal abdominal pain. She has had some trouble getting up and walking around, but has done so with assistance. She wants to go home. PAST MEDICAL HISTORY: 1. Polycystic liver disease with a recent percutaneous cyst drainage. 2. Stress incontinence. 3. Osteoporosis. 4. Hypertension. 5. Headache. 6. Depression. 7. Gastroesophageal reflux disease. 8. Anemia. 9. Arthritis. ALLERGIES: SIMVASTATIN, NOVOCAINE, SULFA, EPINEPHRINE. MEDICATIONS: 1. Tylenol. 2. Aspirin. 3. Heparin subcutaneous injection. 4. Lisinopril. 5. Cefepime 1 g IV daily. 6. Flagyl 500 mg every 8 hours. 7. Omeprazole. FAMILY HISTORY: No recurrent infections. Father had an WI and mother of old age. SOCIAL HISTORY: She lives in [place] [facility]. She has no travel or sick contacts. REVIEW OF SYSTEMS: All negative except for 14-point review of systems except as noted above in the history of present illness. PHYSICAL EXAM: Vital Signs: Temperature is 36.7, heart rate 85, respiratory rate 16, blood pressure 148/63, oxygen saturation 99% on room air. In general, she is awake, not in distress. Neurologic: She is oriented x3. Follows all commands. HEENT: There is no conjunctival hemorrhage. Oropharynx without lesions. Neck is supple without mass. Heart has regular rate and rhythm without murmurs, rubs, or gallops. Lungs are clear to auscultation bilaterally. Abdomen is soft, nontender, nondistended. There are bowel sounds present. Midline drain with serosanguineous cloudy fluid. Musculoskeletal: No spine tenderness to palpation or flank tenderness to palpation. LABORATORY DATA: White blood cell count 7, hemoglobin 9, platelets 161. Creatinine is 1.0. Please see impressions and recommendations as outlined above, which I have discussed with Dr. Murray. Thanks for asking me to see Ms. Mckee in consultation. [id number]/[facility] #: [id number] MTDD
[2018-01-30] MEDS ORDERED: Lactobacillus Acidophilus* 1 TAB PO ONE (16:53)
[2018-01-30] MEDS: Lactobacillus Acidophilus* 1 TAB PO SCH (21:33)
[2018-01-30] MEDS ORDERED: Loperamide CAP* 2 MG PO ONE (23:10)
[2018-01-31] MEDS: Cefepime 1 GM in Dextrose(*) 1 GM/50 ML BAG IV SCH (00:52)
[2018-01-31] MEDS: metroNIDAZOLE IV 500 MG/100ML* 500 MG/100 ML BAG IVPB SCH ×3 (01:24→16:58)
[2018-01-31] MEDS: Omeprazole CAP* 20 MG PO SCH (05:00)
[2018-01-31] MEDS: Heparin VIAL(*) 5000 UNITS/ML VIAL (FIVE THOUSAND) SUBCUT SCH ×4 (05:01→20:41)
[2018-01-31 06:17] LABS: Hematocrit 26 % (35-47); Hemoglobin 8.9 g/dl (12.0-16.0); Mean Corpuscular HGB Conc 34 g/dl (31-36); Mean Corpuscular Hemoglobin 30 pg (27-31); Mean Corpuscular Volume 87 fL (80-97); Mean Platelet Volume 7.7 um3 (7.4-10.4); Platelet Count 170 10^3/ul (150-450); Red Blood Count 2.94 10^6/ul (4.00-5.40); Red Cell Distribution Width 14 % (10.5-15); White Blood Count 5.9 10^3/ul (3.5-10.8)
[2018-01-31 06:32] LABS: EGFR Non-African American 52.7 (>60)
[2018-01-31] MEDS: Lisinopril TAB* 5 MG PO SCH (08:15)
[2018-01-31] MEDS: Lactobacillus Acidophilus* 1 TAB PO SCH ×2 (08:16→20:41)
[2018-01-31] MEDS: Aspirin 81 mg CHEW TAB* 81 MG TAB.CHEW PO SCH (08:21)
--- NOTE | 2018-01-31 10:19 | PN ---
Progress Note - Progress Note Date of Service: 01/31/18 SOAP: Subjective: Patient feels better than prior to drain placement. Objective: Drain output is 150 mL over 24 hours. Selected Entries 01/31/18 07:26 Temperature 99.0 F Temperature Oral Source Pulse Rate 96 Respiratory 16 Rate Blood Pressure 156/62 (mmHg) Blood Pressure 86 Mean O2 Sat by Pulse 99 Oximetry Patient on Room Yes Air Laboratory Tests 01/27/18 01/28/18 01/29/18 20:32 10:05 06:03 WBC 10.6 7.4 6.4 01/30/18 01/31/18 06:37 05:57 WBC 7.6 5.9 RUN DATE: 01/31/18 [facility] LAB LIVE PAGE 1 RUN TIME: [address] [place] [id number] Specimen Inquiry Name: RYAN WILBURN : [address]: Camila Driscoll MD Acct: [id number] Unit: [id number] AGE: 87 Location: [place] [address] Re01/27/18 SEX: F Status: ADM IN SPEC: [id number] HILARY: 01/[birth year]/[address]: hSanta Murray MD REQ: [id number] RECD: 01/28/18 STATUS: RES OTHR DR: Consuelo Altamirano MD _ Tracie Malik MD SOURCE: BODY FLUID SPDESC:ABDOMINAL ORDERED: BF Cult/GS Procedure Result Reported Site Body Fluid Gram Stain Final 01/28/18- 1043 ML 4+ Neutrophils No Organisms Seen Preparation By Cytospin Smear Body Fluid Culture Preliminary 01/31/18917 ML Organism 1 ENTEROBACTER CLOACAE Quantity 3+ 1. ENTEROBACTER CLOACAE M.I.C. RX Cefazolin >=64 R Cefepime <=1 S Ceftriaxone 8 S Ciprofloxacin <=0.25 S Gentamicin <=1 S Levofloxacin <=0.12 S Meropenem 0.5 S Tetracycline 2 S Pipercillin/Tazobactam 8 S Trimethoprim/Sulfamethoxazole <=20 S Amoxicillin/Clavulanic Acid R Aztreonam 16 I Contact the Microbiology Department for any additional antibiotic reporting. * ML - Main Lab . END OF REPORT DEPARTMENT OF PATHOLOGY, [address], [place], [place] [address] David Hoff M.D. Director [facility] # [id number] Assessment: 87 yof status post liver abscess drain placement. Drain output is 150 mL over past 24 hours and is + ENTEROBACTER CLOACAE. Plan & Recommendation: 1. Leave drain in place. 2. Record daily output. 3. Flush daily with 10 mL sterile saline. 4. Radiology will contact patient early following week to inquire about output. 5. When output is <10 mL daily (less flush volume) then consider removal. Discussed with Dr. Morris at 1015 hours on 01/31/18.
[2018-01-31] MEDS: Acetaminop/Codeine 30 MG TAB* 1 TAB (300 MG/30 MG) PO PRN (10:58)
--- NOTE | 2018-01-31 15:29 | PN ---
Subjective Date of Service: 01/31/18 Interval History: HOSPITALIST PROGRESS NOTE Patient seen and examined at bedside. Care reviewed and d/w Raul Crawford RN. She's in good spirits today, denies pain. Anxious for discharge. Family History: Unchanged from Admission Social History: Unchanged from Admission Past Medical History: Unchanged from Admission Objective Active Medications: Acetaminophen (Tylenol Tab*) 650 mg PO Q4H PRN PRN Reason: FEVER/PAIN Last Admin: 01/30/18 08:04 Dose: 650 mg Acetaminophen/Codeine Phosphate (Tylenol/Codeine 30 Mg Tab*) 1 tab PO Q6HR PRN PRN Reason: PAIN Last Admin: 01/31/18 10:58 Dose: 1 tab Aspirin (Aspirin 81 Mg Chew Tab*) 81 mg PO DAILY [facility] Last Admin: 01/31/18 08:21 Dose: Not Given Heparin Sodium (Porcine) (Heparin Vial(*)) 5,000 units SUBCUT Q8HR [facility] Last Admin: 01/31/18 13:37 Dose: 5,000 units Cefepime HCl (Maxipime 1 Gm In Dextrose Duplex (*)) 1 gm in 50 mls @ 100 mls/ hr IV Q24H [facility] Last Admin: 01/31/18 00:52 Dose: 100 mls/hr Metronidazole/Sodium Chloride (Flagyl 500 Mg Ivpb*) 500 mg in 100 mls @ 100 mls /hr IVPB Q8H [facility] Last Admin: 01/31/18 09:05 Dose: 100 mls/hr Lactobacillus Rhamnosus (Lactobacillus Acidophilus*) 1 tab PO BID [facility] Last Admin: 01/31/18 08:16 Dose: 1 tab Lisinopril (Prinivil Tab*) 5 mg PO DAILY [facility] Last Admin: 01/31/18 08:15 Dose: 5 mg Omeprazole (Prilosec Cap*) 20 mg PO DAILY@0600 [facility] Last Admin: 01/31/18 05:00 Dose: 20 mg Ondansetron HCl (Zofran Inj*) 4 mg IV Q6H PRN PRN Reason: NAUSEA Vital Signs - 8 hr 01/31/18 01/31/18 01/31/18 07:26 08:00 10:58 Temperature 99.0 F Pulse Rate 96 Respiratory 16 16 16 Rate Blood Pressure 156/62 (mmHg) O2 Sat by Pulse 99 Oximetry 01/31/18 01/31/18 12:58 13:33 Temperature 97.8 F Pulse Rate 87 Respiratory 16 18 Rate Blood Pressure 126/79 (mmHg) O2 Sat by Pulse 99 Oximetry Oxygen Devices in Use Now: None Appearance: Pleasant elderly lady lying in bed in NAD. Eyes: No Scleral Icterus Ears/Nose/Mouth/Throat: Mucous Membranes Moist Neck: Trachea Midline Respiratory: Symmetrical Chest Expansion and Respiratory Effort, Clear to Auscultation Cardiovascular: RRR - Normal S1 and S2 Abdominal: NL Sounds; No Tenderness; No Distention, - - Drain in place Extremities: No Edema Neurological: Alert and Oriented x 3, NL Muscle Strength and Tone Result Diagrams: 01/31/18 05:57 01/31/18 05:57 Assess/Plan/Problems-Billing Assessment: 87 yo F with h/o HTN and cystic liver had IR drain placed in 12 cm liver cyst on 01/24/18. Developed fever and confusion at home. - Patient Problems (1) Liver disease, cystic, congenital Comment: - Presentation likely due to infected liver cyst. - Fluid culture growing Enterobacter. - ID input appreciated - continue Cefepime and start Levofloxacin x 3 weeks on discharge. - IR input appreciated - plan to remove drain when drainage <10ml/day. (2) GERD (gastroesophageal reflux disease) Comment: - Continue omeprazole. (3) UTI (urinary tract infection) Comment: - Culture growing Acinetobacter and Enterobacter. - Continue Cefepime. (4) Muscular deconditioning Comment: - Did well with PT - plan to d/c home with VNS. (5) DVT prophylaxis Comment: - SQ heparin. Status and Disposition: inpatient
[2018-01-31] MEDS ORDERED: Potassium Chlor TAB* 20 MEQ TAB.ER PO ONE (15:36)
[2018-02-01] MEDS: Cefepime 1 GM in Dextrose(*) 1 GM/50 ML BAG IV SCH (01:06)
[2018-02-01] MEDS: metroNIDAZOLE IV 500 MG/100ML* 500 MG/100 ML BAG IVPB SCH ×2 (01:55→08:53)
[2018-02-01] MEDS: Omeprazole CAP* 20 MG PO SCH (06:11)
[2018-02-01] MEDS: Heparin VIAL(*) 5000 UNITS/ML VIAL (FIVE THOUSAND) SUBCUT SCH (06:11)
[2018-02-01] MEDS: Lactobacillus Acidophilus* 1 TAB PO SCH (08:52)
[2018-02-01] MEDS: Lisinopril TAB* 5 MG PO SCH (08:52)
[2018-02-01] MEDS: Acetaminop/Codeine 30 MG TAB* 1 TAB (300 MG/30 MG) PO PRN (09:00)
[2018-02-01] MEDS: Aspirin 81 mg CHEW TAB* 81 MG TAB.CHEW PO SCH (09:01)
[2018-02-01 11:45] VITALS: BP 134/57
--- NOTE | 2018-02-03 07:20 | DS ---
CC: Dr. Tracie Malik; Dr. Leal; Dr. Peck; Dr. Castañeda * DISCHARGE SUMMARY: DATE OF ADMISSION: 01/27/18 DATE OF DISCHARGE: 02/01/18 PRIMARY CARE PROVIDER: Dr. Tracie Malik. INFECTIOUS DISEASE SPECIALIST: Dr. Leal. INTERVENTIONAL RADIOLOGIST: Dr. Peck. PEARL STRINGER: Dr. Castañeda. DISCHARGE DIAGNOSES: 1. Liver cyst Enterobacter infection. 2. Enterobacter urinary tract infection, present on admission, not Sim catheter related. 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 Stress urinary incontinence. 3. Osteoporosis. 4. Hypertension. 5. Depression. 6. Gastroesophageal reflux disease. 7. Anemia. 8. Arthritis. MEDICATION LIST: 1. Amlodipine 10 mg p.o. daily. 2. Lisinopril 10 mg p.o. daily. 3. Vitamin D2 1.25 mg p.o. monthly. 4. Omeprazole 10 mg p.o. b.i.d. 5. Vitamin B12 1000 mcg p.o. daily. 6. Nystatin powder topical b.i.d. 7. Acetaminophen with Codeine No. 3 one tablet p.o. q.6 hours p.r.n. pain. New medications: 1. Levofloxacin 500 mg p.o. daily for 25 more days. 2. Lactobacillus acidophilus 1 tablet p.o. b.i.d. HOSPITAL COURSE: Ms. Mckee is an 87-year-old lady with a past medical history as stated above that had been seeing Dr. Castañeda's office and had right upper quadrant pain. She was referred to IR and had a drain placed on her large hepatic cyst on 01/24/18. She presented to the emergency room on 01/27/18 with complaints of the abdominal pain, high fever at home. For more details about her presentation, I refer you to her history and physical. She had a normal white cell count but she did have a fever of 101.[address] of the abdomen and pelvis showed interval percutaneous drain placement in the large left hepatic lobe cyst, which is partially collapsed. The patient also had some confusion and a CT of the brain was done and showed no acute intracranial abnormality, only age-related atrophy and mild chronic small vessel ischemic disease. The patient's hepatic cyst culture grew enterobacter and she also had a urine culture that was positive for enterobacter. She was seen in consultation by Dr. Leal and his impression was the patient had polycystic liver disease with recent epigastric pain, enlarging cyst, status post IR drain and 2 to 3 days later developed fever and malaise and culture of the fluid growing enterobacter. Blood cultures are negative and the fevers have improved with cefepime. He felt that she either had a primary infection of the cyst reason why she was having pain prior to the procedure or a secondary infection after the drain was placed. But either way, she had an infected liver cyst. His recommendation was to continue cefepime while in the hospital and should transition her to levofloxacin 500 mg p.o. daily for the next 25 days and towards the end of the antibiotic course, we repeat CT of the abdomen to ensure that it is steadily improved, also to trend CRPs as outpatient to make sure they are trending down. The patient became afebrile. The patient had improvement of his symptoms and the case was discussed with Interventional Radiology (Dr. Peck). Her drain still has an output between 100 to 150 mL and the goal is to keep the drain in until drainage is less than 10 mL a day. He also recommended flushing her drain with 10 mL of saline daily and arrangements were made for visiting nurse services to continue to care for her catheter after discharge. She is medically stable to be discharged home today to follow up with her primary care provider, Dr. Leal, Dr. Castañeda, and Dr. Peck as outpatient. PHYSICAL EXAMINATION: Vital Signs: Temperature 97.9, heart rate is 89, respiratory rate is 19, oxygen saturation is 99% on room air, blood pressure is 134/57. General: The patient is a pleasant, elderly, lying in bed, in no acute distress. CVS: Normal S1, S2. Regular rate and rhythm. Chest: Breath sounds present bilaterally with no added sounds. Abdomen: Soft, nontender, and nondistended. Drain is in place draining bilious fluid. Extremities: No edema. Neuro: She is alert and oriented x3, able to move all 4 extremities. DIET: Heart healthy diet. ACTIVITIES: As tolerated. DISPOSITION: To home. STATUS WHILE IN THE HOSPITAL: Inpatient. Please keep in mind this is a summarized version of this patient's hospital stay. If you need more information, please feel free to call me at [phone] or please obtain full medical records. TIME SPENT: Approximately 45 minutes was spent to complete this discharge. [id number]/[facility] #: [id number] IKE
== END 2018-02-01 13:49 | disposition home health service (06) | DRG 441 ==
LOC: ED 16:47 → MEDTELE 23:38
PROVIDERS: ADMIT Hospitalist; ATTEND Internal Medicine
DX: Q44.6 Cystic disease of liver (principal); G93.40 Encephalopathy, unspecified; N39.0 Urinary tract infection, site not specified; R47.01 Aphasia; M81.0 Age-related osteoporosis without current pathological fracture; K21.9 Gastro-esophageal reflux disease without esophagitis; F32.9 Major depressive disorder, single episode, unspecified; M19.90 Unspecified osteoarthritis, unspecified site; I25.10 Atherosclerotic heart disease of native coronary artery without angina pectoris; I12.9 Hypertensive chronic kidney disease with stage 1 through stage 4 chronic kidney disease, or unspecified chronic kidney disease; E78.00 Pure hypercholesterolemia, unspecified; R40.2362 Coma scale, best motor response, obeys commands, at arrival to emergency department; B96.89 Other specified bacterial agents as the cause of diseases classified elsewhere; D64.9 Anemia, unspecified; R53.1 Weakness; N39.3 Stress incontinence (female) (male); R40.2142 Coma scale, eyes open, spontaneous, at arrival to emergency department; N18.3 Chronic kidney disease, stage 3 (moderate); R40.2252 Coma scale, best verbal response, oriented, at arrival to emergency department; R29.700 NIHSS score 0; Z86.12 Personal history of poliomyelitis; Z90.710 Acquired absence of both cervix and uterus; Z82.49 Family history of ischemic heart disease and other diseases of the circulatory system; Z88.2 Allergy status to sulfonamides; Z88.8 Allergy status to other drugs, medicaments and biological substances; Z87.891 Personal history of nicotine dependence; R10.11 Right upper quadrant pain
CPT/HCPCS: 36415; 70450; 71045; 74177; 80048; 80053; 80061; 81003; 81015; 82565; 83036; 83605; 83690; 84520; 85025; 85027; 85610; 85730; 86140; 87040; 87070; 87077; 87086; 87186; 87205; 99284; A9270-GY; G8978-GP-CI; G8979-GP-CI; G8980-GP-CI; G8987-GO-CJ; G8988-GO-CI; J0692; J1644; J3490; Q9967

== ENCOUNTER 2019-01-25 10:40 | Emergency (ER) | payer MEDICARE, MEDICAID ==
[2019-01-25] MEDS ORDERED: Acetaminophen TAB* 325 MG PO ONE (11:41)
[2019-01-25] MEDS ORDERED: Ibuprofen TAB* 600 MG PO ONE (11:41)
--- NOTE | 2019-01-25 11:57 | ED ---
Neurological HPI - History of Current Complaint Chief Complaint: EDHipPelvisInjury Stated Complaint: LEG PAIN Time Seen by Provider: 01/25/19 10:48 Hx Obtained From: Patient Onset/Duration: Sudden Onset, Still Present Timing: Sudden Onset Seizure Severity: Severe Pain Intensity: 9 Pain Scale Used: 0-10 Numeric - Additional Pertinent History Primary Care Physician: MARIA ISABEL - Allergy/Home Medications Allergies/Adverse Reactions: Allergies Allergy/AdvReac Type Severity Reaction Status Date / Time epinephrine Allergy Severe Palpitation Verified 01/28/18 01:07 s procaine Allergy Severe Palpitation Verified 01/28/18 01:07 s phenytoin Allergy Intermediate Shakes Verified 01/28/18 01:07 simvastatin Allergy See Comment Verified 01/28/18 01:07 PMH/Surg Hx/FS Hx/Imm Hx Endocrine/Hematology History: Denies: Hx Diabetes Cardiovascular History: Reports: Hx Angina, Hx Coronary Artery Disease, Hx Hypercholesterolemia, Hx Hypertension Denies: Hx Myocardial Infarction, Hx Valvular Heart Disease Respiratory History: Denies: Hx Asthma, Hx Chronic Obstructive Pulmonary Disease (COPD) History: Denies: Hx Renal Disease Sensory History: Reports: Hx Contacts or Glasses - not with pt Denies: Hx Legally Blind, Hx Deafness, Hx Hearing Aid Opthamlomology History: Reports: Hx Contacts or Glasses - not with pt Denies: Hx Legally Blind Psychiatric History: Denies: Hx Schizophrenia - Surgical History Surgery Procedure, Year, and Place: HYSTERECTOMY, APPENDECTOMY, OVARIAN CYST REMOVAL, T&A, Rt Foot Infectious Disease History: No Infectious Disease History: Denies: Traveled Outside the [place] in Last 30 Days - Family History Known Family History: Positive: Cardiac Disease, Hypertension - BENIGN - Social History Alcohol Use: None Substance Use Type: Reports: Prescribed Substance Use Comment - Amount & Last Used: PT ON TYLENOL #3 AND TRAMADOL Smoking Status (MU): Never Smoked Tobacco Type: Cigarettes Physical Exam Vital Signs On Initial Exam: Initial Vitals Temp Pulse Resp BP Pulse Ox 100.2 F 66 14 168/65 98 01/25/19 10:41 01/25/19 10:41 01/25/19 10:41 01/25/19 10:41 01/25/19 10:41 Diagnostics - Vital Signs Vital Signs Temp Pulse Resp BP Pulse Ox 01/25/19 10:41 100.2 F 66 14 168/65 98 - Laboratory Lab Statement: Any lab studies that have been ordered have been reviewed, and results considered in the medical decision making process. Discharge ED - Discharge Plan Referrals: Tracie Malik MD [Primary Care Provider] - - Attestation Statements Document Initiated by Scribe: Yes
--- NOTE | 2019-01-25 12:35 | ED ---
Lower Extremity - HPI Summary HPI Summary: 88-year-old female presents with atraumatic left-sided hip and leg pain. Patient states she was exerting herself and walking on Tuesday at [facility], went home and had left leg pain. Patient reports left leg pain that radiates down from her hip to her knee, no weakness numbness or tingling. Patient states she took tylenol wcodeine at home which helped the pain a little bit. At baseline she is a walker to walk. Denies trauma, no weakness or numbness, no bowel or bladder incontinence, no fevers. Allergies Allergy/AdvReac Type Severity Reaction Status Date / Time epinephrine Allergy Severe Palpitation Verified 01/28/18 01:07 s procaine Allergy Severe Palpitation Verified 01/28/18 01:07 s phenytoin Allergy Intermediate Shakes Verified 01/28/18 01:07 simvastatin Allergy See Comment Verified 01/28/18 01:07 Home Medications Medication Instructions Recorded Confirmed Type Lisinopril TAB* [Prinivil TAB 10 1 tab PO DAILY 05/09/13 01/30/18 History MG*] Acetaminophen with Codeine 1 tab PO Q6HR PRN 01/20/18 01/30/18 History [Acetaminophen-Cod #3 Tablet] Cyanocobalamin TAB* [Vitamin B12 1,000 mcg PO DAILY 01/20/18 01/30/18 History TAB*] Omeprazole CAP(NF) [PriLOSEC 10 mg PO BID 01/20/18 01/30/18 History CAP(NF)] amLODIPine TAB* [Norvasc 5 mg TAB*] 10 mg PO DAILY 01/20/18 01/30/18 History Nystatin TOP POWDER* 1 applic TOPICAL BID 01/30/18 01/30/18 History Vitamin D2 1.25 mg PO MONTHLY 01/30/18 01/30/18 History Lactobacillus Acidophilus* 1 tab PO BID #60 tab 02/01/18 Rx Levofloxacin TAB* [Levaquin 500 500 mg PO DAILY #25 tab 02/01/18 Rx Tab*] - History of Current Complaint Chief Complaint: EDHipPelvisInjury Stated Complaint: LEG PAIN Time Seen by Provider: 01/25/19 10:48 Hx Obtained From: Patient Onset of Pain: Days - 01/23/19 Onset/Duration: Days - 01/23/19 Severity Currently: Severe Pain Intensity: 9 Pain Scale Used: 0-10 Numeric Timing: Constant, Lasting Days - 01/23/19 Location: Is Discrete @ - left hip Character Of Pain: Sharp Associated Signs And Symptoms: Negative: Fever, Weakness, Knee Pain Aggravating Factor(s): Nothing Alleviating Factor(s): Nothing Able to Bear Weight: No - Allergies/Home Medications Allergies/Adverse Reactions: Allergies Allergy/AdvReac Type Severity Reaction Status Date / Time epinephrine Allergy Severe Palpitation Verified 01/28/18 01:07 s procaine Allergy Severe Palpitation Verified 01/28/18 01:07 s phenytoin Allergy Intermediate Shakes Verified 01/28/18 01:07 simvastatin Allergy See Comment Verified 01/28/18 01:07 PMH/Surg Hx/FS Hx/Imm Hx Endocrine/Hematology History: Denies: Hx Diabetes Cardiovascular History: Reports: Hx Angina, Hx Coronary Artery Disease, Hx Hypercholesterolemia, Hx Hypertension Denies: Hx Myocardial Infarction, Hx Valvular Heart Disease Respiratory History: Denies: Hx Asthma, Hx Chronic Obstructive Pulmonary Disease (COPD) History: Denies: Hx Renal Disease Sensory History: Reports: Hx Contacts or Glasses - not with pt Denies: Hx Legally Blind, Hx Deafness, Hx Hearing Aid Opthamlomology History: Reports: Hx Contacts or Glasses - not with pt Denies: Hx Legally Blind Psychiatric History: Denies: Hx Schizophrenia - Surgical History Surgical History: Yes Surgery Procedure, Year, and Place: HYSTERECTOMY, APPENDECTOMY, OVARIAN CYST REMOVAL, T&A, Rt Foot Infectious Disease History: No Infectious Disease History: Denies: Traveled Outside the [place] in Last 30 Days - Family History Known Family History: Positive: Cardiac Disease, Hypertension - BENIGN - Social History Alcohol Use: None Substance Use Type: Reports: Prescribed Substance Use Comment - Amount & Last Used: PT ON TYLENOL #3 AND TRAMADOL Hx Tobacco Use: No Smoking Status (MU): Never Smoked Tobacco Review of Systems Negative: Fever Positive: Arthralgia Negative: Weakness, Paresthesia, Numbness All Other Systems Reviewed And Are Negative: Yes Physical Exam - Summary Physical Exam Summary: Constitutional: Well-developed, Well-nourished, Alert. (-) Distressed Skin: Warm, Dry HENT: Normocephalic; Atraumatic Eyes: Conjunctiva normal Neck: Musculoskeletal ROM normal neck. (-) JVD, (-) Stridor Cardio: Rhythm regular, rate normal, Heart sounds normal; Intact distal pulses; Radial pulses are 2+ and symmetric. (-) Murmur Pulmonary/Chest wall: Effort normal. (-) Respiratory distress, (-) Wheezes, (-) Rales Abd: Soft, (-) tenderness, (-) Distension, (-) Guarding, (-) Rebound Musculoskeletal: No thoracic or lumbar tenderness. L paraspinal lumbar tenderness, positive SI joint tenderness, positive straight leg raise on L, 2+ DP pulse, SILT. Strength 5/5 BLE Lymph: (-) Cervical adenopathy Neuro: Alert, Oriented x3 Psych: Mood and affect Normal Triage Information Reviewed: Yes Vital Signs On Initial Exam: Initial Vitals Temp Pulse Resp BP Pulse Ox 100.2 F 66 14 168/65 98 01/25/19 10:41 01/25/19 10:41 01/25/19 10:41 01/25/19 10:41 01/25/19 10:41 Vital Signs Reviewed: Yes Diagnostics - Vital Signs Vital Signs Temp Pulse Resp BP Pulse Ox 01/25/19 10:41 100.2 F 66 14 168/65 98 - Laboratory Lab Statement: Any lab studies that have been ordered have been reviewed, and results considered in the medical decision making process. - Radiology Hip/Pelvis Xray Radiology Interpretation Completed By: Radiologist Summary of Radiographic Findings: Hip/Pelvis Xray reveals, per radiologist, IMPRESSION: NO EVIDENCE FOR FRACTURE, IF THE PATIENT'S SYMPTOMS PERSIST RECOMMEND FOLLOW-UP IMAGING. ED Physician has reviewed this report. Re-Evaluation - Re-Evaluation First Eval Re-Evaluation Time: 12:43 Change: Improved Comment: Patient's Hip xray was negative and patient states that she feels better. Patient was able to abulate with walker. Lower Extremity Course/Dx - Course Course Of Treatment: 88-year-old female who presents w atraumatic left hip pain. Exam w well-appearing female, positive tenderness SI joint, no midline L- spine tenderness, positive straight leg raise. Exam c/w sciatica vs SI joint pain. No red flag symptoms such as weakness, tingling, fevers, trauma, urinary/ bowel incontinence. Will check plain films given age, low suspicion for bony abnormality. - Diagnoses Provider Diagnoses: Sciatica Discharge ED - Sign-Out/Discharge Documenting (check all that apply): Patient Departure - discharged Patient Received Moderate/Deep Sedation with Procedure: No - Discharge Plan Condition: Stable Disposition: HOME Patient Education Materials: Sciatica (ED) Referrals: Tracie Malik MD [Primary Care Provider] - Additional Instructions: You were seen in the emergency department for left hip pain. Your x-ray did not show any acute maladies. You can take Tylenol and Motrin 400 mg every 8 hours at home. Please return for worsening pain, inability to walk, worsening numbness or tingling in your leg. If any studies were not completed at the time of discharge you will be called with the relevant results. Please follow up with your primary care doctor in next 2-3 days and return to emergency department for worsening or concerning symptoms. It was a pleasure taking care of you today. - Billing Disposition and Condition Condition: STABLE Disposition: Home - Attestation Statements Document Initiated by Caleb: Yes Documenting Scribe: Connie Michelle Provider For Whom Caleb is Documenting (Include Credential): Dr. Gilbert Harmon MD Scribe Attestation: Connie Ta scribed for Dr. Gilbert Harmon MD on 01/25/19 at 2052. Scribe Documentation Reviewed: Yes Provider Attestation: The documentation as recorded by the Connie johnson accurately reflects the service I personally performed and the decisions made by me, Dr. Gilbert Harmon MD Status of Scribe Document: Viewed
[2019-01-25 13:08] VITALS: BP 175/55
== END 2019-01-25 12:55 | disposition home or self-care (01) ==
LOC: ED 10:40
DX: M54.30 Sciatica, unspecified side (principal); I25.10 Atherosclerotic heart disease of native coronary artery without angina pectoris; E78.00 Pure hypercholesterolemia, unspecified; I10 Essential (primary) hypertension; Z90.710 Acquired absence of both cervix and uterus; Z79.899 Other long term (current) drug therapy; Z88.8 Allergy status to other drugs, medicaments and biological substances
CPT/HCPCS: 99282; A9270-GY

== ENCOUNTER 2019-02-02 18:52 | Emergency (ER) | payer MEDICARE, OTHER ==
--- NOTE | 2019-02-02 19:14 | ED ---
Lower Extremity - HPI Summary HPI Summary: This patient is an 88 year old female presenting to [facility] with a chief complaint of left leg pain since one week ago. The patient was here last week and diagnosed with sciatica. She states she is afraid to be in the house alone without falling. She states the pain has gotten worse over the last week. She denies any traumatic event that may be causing her pain. She reports left lower back pain over the past week. She rates her pain 9/10 in severity. She reports numbness and tingling in her left foot since this morning. She states she takes Tylenol Codeine for her pain, with her last dose 3 hours ago. She states after she takes her medication she can move around better but slowly. - History of Current Complaint Chief Complaint: EDExtremityLower Stated Complaint: LEG PAIN PER EMS Time Seen by Provider: 02/02/19 19:08 Hx Obtained From: Patient Onset/Duration: Weeks Pain Intensity: 9 Pain Scale Used: 0-10 Numeric Timing: Constant - Allergies/Home Medications Allergies/Adverse Reactions: Allergies Allergy/AdvReac Type Severity Reaction Status Date / Time epinephrine Allergy Severe Palpitation Verified 01/28/18 01:07 s procaine Allergy Severe Palpitation Verified 01/28/18 01:07 s phenytoin Allergy Intermediate Shakes Verified 01/28/18 01:07 simvastatin Allergy See Comment Verified 01/28/18 01:07 Home Medications: Home Medications Cyanocobalamin TAB* [Vitamin B12 TAB*] 1,000 mcg PO DAILY 02/02/19 [History Confirmed 02/02/19] Ergocalciferol CAP* [Drisdol CAP*] 50,000 unit PO MONTHLY 02/02/19 [History Confirmed 02/02/19] Ferrous Sulfate TAB* 325 mg PO DAILY 02/02/19 [History Confirmed 02/02/19] Lisinopril TAB* [Prinivil TAB*] 2.5 mg PO DAILY 02/02/19 [History Confirmed ] Mirabegron (NF) [Myrbetriq (NF)] 25 mg PO DAILY 02/02/19 [History Confirmed ] amLODIPine TAB* [Norvasc 5 mg TAB*] 2.5 mg PO DAILY 02/02/19 [History Confirmed 02/02/19] PMH/Surg Hx/FS Hx/Imm Hx Endocrine/Hematology History: Denies: Hx Diabetes Cardiovascular History: Reports: Hx Angina, Hx Coronary Artery Disease, Hx Hypercholesterolemia, Hx Hypertension Denies: Hx Myocardial Infarction, Hx Valvular Heart Disease Respiratory History: Denies: Hx Asthma, Hx Chronic Obstructive Pulmonary Disease (COPD) History: Denies: Hx Renal Disease Sensory History: Reports: Hx Contacts or Glasses - not with pt Denies: Hx Legally Blind, Hx Deafness, Hx Hearing Aid Opthamlomology History: Reports: Hx Contacts or Glasses - not with pt Denies: Hx Legally Blind Psychiatric History: Denies: Hx Schizophrenia - Surgical History Surgery Procedure, Year, and Place: HYSTERECTOMY, APPENDECTOMY, OVARIAN CYST REMOVAL, T&A, Rt Foot Infectious Disease History: No Infectious Disease History: Denies: Traveled Outside the [place] in Last 30 Days - Family History Known Family History: Positive: Cardiac Disease, Hypertension - BENIGN - Social History Alcohol Use: None Substance Use Type: Reports: Prescribed Substance Use Comment - Amount & Last Used: PT ON TYLENOL #3 AND TRAMADOL Hx Tobacco Use: No Smoking Status (MU): Never Smoked Tobacco Type: Cigarettes Review of Systems Positive: Other - LLE pain, back pain. Positive: Paresthesia, Numbness All Other Systems Reviewed And Are Negative: Yes Physical Exam - Summary Physical Exam Summary: Appearance: Well-appearing, Well-nourished, elderly woman lying in bed comfortably Skin: Warm, dry, no obvious rash Eyes: sclera anicteric, no conjunctival pallor ENT: mucous membranes moist, pharynx appears normal Neck: Supple, nontender Respiratory: Clear to auscultation, no signs of respiratory distress Cardiovascular: Normal S1, S2. No murmurs. Normal distal pulses in tibial and radial bilaterally. Abdomen: Soft, nontender, normal active bowel sounds present Musculoskeletal: Normal, Strength/ROM Intact. Left leg has no apparent pain when log rolling or rotating the hip internally and externaly.. No pain with longitudinal pressure on the heel. She is able to sit up on her own with minimal assistance. There is no tenderness in her lower back or spine. Neurological: A&Ox3, awake and alert, mentation is normal, speech is fluent and appropriate. Good reflexes in the heel and ankle on the left. Subjective decreased sensation of the left foot Psychiatric: affect is normal, does not appear anxious or depressed Triage Information Reviewed: Yes Vital Signs On Initial Exam: Initial Vitals Temp Pulse Resp BP Pulse Ox 99.3 F 80 16 180/84 97 02/02/19 18:56 02/02/19 18:56 02/02/19 18:56 02/02/19 18:56 02/02/19 18:56 Vital Signs Reviewed: Yes Procedures - Sedation Patient Received Moderate/Deep Sedation with Procedure: No Diagnostics - Vital Signs Vital Signs Temp Pulse Resp BP Pulse Ox 02/02/19 18:56 99.3 F 80 16 180/84 97 - Laboratory Result Diagrams: 02/02/19 19:35 02/02/19 19:35 Lab Statement: Any lab studies that have been ordered have been reviewed, and results considered in the medical decision making process. - Radiology Hip/Pelvis XR Radiology Interpretation Completed By: ED Physician Summary of Radiographic Findings: No fracture noted. Pending offical radiologist report. Lumbar XR Radiology Interpretation Completed By: ED Physician Summary of Radiographic Findings: No fracture noted. Pending offical radiologist report. Lower Extremity Course/Dx - Course Course Of Treatment: This patient is an 88 year old female presenting to [facility] with a chief complaint of left leg pain since one week ago. Imaging and labs were unremarkable. A plan for discharge was discussed with this patient and she was agreeable with this plan. - Diagnoses Provider Diagnoses: Sciatica Discharge ED - Sign-Out/Discharge Documenting (check all that apply): Patient Departure - Discharge Patient Received Moderate/Deep Sedation with Procedure: No - Discharge Plan Condition: Good Disposition: HOME Patient Education Materials: Sciatica (ED) Referrals: Tracie Malik MD [Primary Care Provider] - 2 Days Additional Instructions: Continue taking the pain medication. If you get much worse, we can always see you back here. - Billing Disposition and Condition Condition: GOOD Disposition: Home - Attestation Statements Document Initiated by Caleb: Yes Documenting Scribe: Norris Courtney Provider For Whom Caleb is Documenting (Include Credential): Hany Renae MD Scribe Attestation: Norris Ta, haed for Hany Renae MD on 02/08/19 at 1850. Scribe Documentation Reviewed: Yes Provider Attestation: The documentation as recorded by the Norris johnson accurately reflects the service I personally performed and the decisions made by me, Hany Renae MD Status of Scribe Document: Viewed
[2019-02-02 19:35] LABS: Urine Appearance Clear; Urine Bacteria Absent (Absent); Urine Bilirubin Negative (Negative); Urine Blood 1+ (Negative); Urine Color Straw; Urine Glucose Negative (Negative); Urine Ketones Negative (Negative); Urine Nitrite Negative (Negative); Urine Protein Negative (Negative); Urine Red Blood Cell Trace(0-2/hpf) (Absent); Urine Specific Gravity 1.004 (1.010-1.030); Urine Squamous Epithelial Cell Present (Absent); Urine Urobilinogen Negative (Negative); Urine White Blood Cell Trace(0-5/hpf) (Absent)
[2019-02-02 19:41] LABS: ABS Basophils 0.1 10^3/ul (0-0.2); ABS Eosinophils 0.1 10^3/ul (0-0.6); ABS Lymphocytes 0.9 10^3/ul (1.0-4.8); ABS Monocytes 0.5 10^3/ul (0-0.8); ABS Neutrophils 3.6 10^3/ul (1.5-7.7); Eosinophil % 2.4 %; Hematocrit 29 % (35-47); Hemoglobin 9.8 g/dL (12.0-16.0); Lymphocyte % 18.3 %; Mean Corpuscular HGB Conc 34 g/dL (31-36); Mean Corpuscular Hemoglobin 30 pg (27-31); Mean Corpuscular Volume 87 fL (80-97); Mean Platelet Volume 7.4 fL (7.4-10.4); Platelet Count 168 10^3/uL (150-450); Red Blood Count 3.26 10^6 /uL (3.70-4.87); Red Cell Distribution Width 13 % (10-15); White Blood Count 5.2 10^3/uL (3.5-10.8)
[2019-02-02 20:02] LABS: Albumin 4.3 g/dL (3.2-5.2); Albumin/Globulin Ratio 1.8 (1-3); BUN/Creatinine Ratio 17.6 (8-20); C Reactive Protein 12.64 mg/L (<8.01); Calcium 9.6 mg/dL (8.6-10.3); Globulin 2.4 g/dL (2-4); Potassium 4.4 mmol/L (3.5-5.0); Total Bilirubin 0.4 mg/dL (0.2-1.0); Total Protein 6.7 g/dL (6.4-8.9)
[2019-02-02] MEDS ORDERED: Acetaminophen / Codeine* #3 (300 MG/30 MG) TAB PO ONE (20:59)
[2019-02-02 21:33] LABS: Erythrocyte Sed Rate 54 mm/Hr (0-29)
[2019-02-02 21:46] VITALS: BP 146/93
== END 2019-02-02 21:46 | disposition home or self-care (01) ==
LOC: ED 18:52
DX: M54.30 Sciatica, unspecified side (principal); I25.10 Atherosclerotic heart disease of native coronary artery without angina pectoris; E78.00 Pure hypercholesterolemia, unspecified; I10 Essential (primary) hypertension; Z90.710 Acquired absence of both cervix and uterus; Z88.4 Allergy status to anesthetic agent; Z88.8 Allergy status to other drugs, medicaments and biological substances; Z79.899 Other long term (current) drug therapy
CPT/HCPCS: 36415; 72100; 80053; 81003; 81015; 85025; 85652; 86140; 87086; 99283; A9270-GY